=== PATIENT | female | born 1970 | race Caucasian/White ===

== ENCOUNTER 2019-01-13 16:53 | Emergency (ER) | payer MEDICAID ==
[~2019-01-13] VITALS: Ht 154.9 cm; Wt 115.9 kg
[2019-01-13 16:59] VITALS: BP 124/81; TEMP 98.2
[2019-01-13] MEDS ORDERED: ZOLOFT 100MG100 MG PO (17:24)
[2019-01-13] MEDS ORDERED: TOPROL XL 50MG50 MG PO (17:24)
[2019-01-13] MEDS ORDERED: HCTZ 25MG TAB25 MG PO (17:24)
[2019-01-13] MEDS ORDERED: NEURONTIN100 MG/CAP PO (17:25)
[2019-01-13] MEDS ORDERED: LIPITOR20 MG PO (17:25)
[2019-01-13] MEDS ORDERED: AMOXICILLIN 50500 MG PO (17:36)
[2019-01-13] MEDS ORDERED: NORCO 325 MG-51 TAB PO (17:36)
[2019-01-13 17:44] VITALS: PULSE 80
== END 2019-01-13 17:46 | disposition home or self-care (01) ==
LOC: COL.ER 16:53
DX: K02.9 Dental caries, unspecified (principal); J45.909 Unspecified asthma, uncomplicated; E78.5 Hyperlipidemia, unspecified; F17.210 Nicotine dependence, cigarettes, uncomplicated; I10 Essential (primary) hypertension

== ENCOUNTER 2019-01-13 18:52 | Emergency (ER) | payer MEDICAID ==
[~2019-01-13 18:52] MED LIST: AMOXICILLIN 50500 MG PO; HCTZ 25MG TAB25 MG PO; LIPITOR20 MG PO; NEURONTIN100 MG/CAP PO; NORCO 325 MG-51 TAB PO; TOPROL XL 50MG50 MG PO; ZOLOFT 100MG100 MG PO
== END 2019-01-13 19:05 | disposition left against medical advice (07) ==
LOC: COL.ER 18:52
DX: Z72.9 Problem related to lifestyle, unspecified (principal)